=== PATIENT | female | born 1935 | race Caucasian/White ===

== ENCOUNTER 2018-04-19 16:27 | Emergency (ER) | payer MEDICARE ==
--- NOTE | 2018-04-19 17:35 | RAD ---
Indication: Fall, head injury. CT of the head performed without IV contrast. Ventricular structures are midline. No midline shift is noted. There is central and cortical atrophy. There is no evidence of intracranial mass or hemorrhage. No other high or low density lesions are identified. Mastoid air cells and paranasal sinuses are otherwise unremarkable. IMPRESSION: Atrophy. No intracranial mass or hemorrhage is noted.
--- NOTE | 2018-04-19 17:42 | RAD ---
Indication: Neck injury CT of the cervical spine was obtained in the axial plane. Sagittal and coronal reconstructed images were obtained. Skull base demonstrates no fracture. C1 ring is intact. The vertebral bodies appear normal in height. Disc space narrowing at C3-C4 with spondylytic ridge flattens the thecal sac. Bilateral uncovertebral hypertrophy is noted. C5-C6 spondylitic ridge with bilateral uncovertebral joint hypertrophy is noted. No central foraminal stenosis is noted. Old fracture of the C7 spinous process is noted. IMPRESSION: No recent fracture is noted. There is degenerative disc disease at C3-C4, C5-C6 and C6-C7.
[2018-04-19 19:15] VITALS: BP 143/111
--- NOTE | 2018-04-19 19:15 | ED ---
Jhony Morgan Tiffany, scribed for Bassam Adhikari MD on 04/19/18 at 1705 . Head Injury - HPI Summary HPI Summary: 82 year old F presenting to [facility] complains of hitting the back of her head s/p unwitnessed mechanical fall in bathroom at 16:00 today. Symptoms aggravated by nothing. Symptoms alleviated by nothing. Patient denies neck pain. LEVEL 5 CAVEAT: HPI is limited due to hx dementia. - History Of Current Complaint Stated Complaint: FALL Time Seen by Provider: 04/19/18 16:58 Hx Obtained From: Family/Hydrology Teacher - daughter Hx From Patient Unobtainable Due To: Dementia Mechanism Of Injury: Other - unwitnessed mechanical fall Onset/Duration: Started Hours Ago - 16:00 today Aggravating Factor(s): Other: - nothing Alleviating Factor(s): Other: - nothing Associated Signs And Symptoms: Negative - neck pain - Allergies/Home Medications Allergies/Adverse Reactions: Allergies Allergy/AdvReac Type Severity Reaction Status Date / Time No Known Allergies Allergy Verified 10/30/16 08:01 PMH/Surg Hx/FS Hx/Imm Hx Previously Healthy: No Endocrine/Hematology History: Reports: Hx Diabetes Cardiovascular History: Reports: Hx Hypercholesterolemia, Hx Hypertension Denies: Other Cardiovascular Problems/Disorders GI History: Reports: Hx Gastroesophageal Reflux Disease, Hx Hiatal Hernia Sensory History: Reports: Hx Contacts or Glasses Opthamlomology History: Reports: Hx Contacts or Glasses Neurological History: Reports: Hx Dementia - Cancer History Cancer Type, Location and Year: skin cancer - Surgical History Surgery Procedure, Year, and Place: appy, skin cancer removal to forehead Hx Anesthesia Reactions: No Infectious Disease History: Denies: Traveled Outside the [place] in Last 30 Days - Family History Known Family History: Positive: Diabetes - Social History Alcohol Use: None Hx Substance Use: No Substance Use Type: Reports: None Hx Tobacco Use: No Smoking Status (MU): Never Smoked Tobacco Review of Systems Negative: Fever Musculoskeletal: Negative - neck pain Positive: Other - patient hit the back of her head s/p unwitnessed mechanical fall All Other Systems Reviewed And Are Negative: Yes Physical Exam - Summary Physical Exam Summary: VITAL SIGNS: Reviewed. GENERAL: Patient is a well-developed and nourished (MALE OR FEMALE) who is lying comfortable in the stretcher. Patient is not in any acute respiratory distress. HEAD AND FACE: No signs of trauma. No ecchymosis, hematomas or skull depressions. No sinus tenderness. EYES: PERRLA, EOMI x 2, No injected conjunctiva, no nystagmus. EARS: Hearing grossly intact. Ear canals and tympanic membranes are within normal limits. MOUTH: Oropharynx within normal limits. NECK: Supple, trachea is midline, no adenopathy, no JVD, no carotid bruit, no c- spine tenderness, neck with full ROM. CHEST: Symmetric, no tenderness at palpation LUNGS: Clear to auscultation bilaterally. No wheezing or crackles. CVS: Regular rate and rhythm, S1 and S2 present, no murmurs or gallops appreciated. ABDOMEN: Soft, non-tender. No signs of distention. No rebound no guarding, and no masses palpated. Bowel sounds are normal. EXTREMITIES: FROM in all major joints, no edema, no cyanosis or clubbing. NEURO: Alert and oriented x 3 second to patient's chronic dementia. No acute neurological deficits. Speech is normal and follows commands. SKIN: Dry and warm Triage Information Reviewed: Yes Vital Signs On Initial Exam: Initial Vitals Temp Pulse Resp BP Pulse Ox 97 F 53 18 137/61 97 04/19/18 17:06 04/19/18 17:06 04/19/18 17:06 04/19/18 17:06 04/19/18 17:06 Vital Signs Reviewed: Yes Diagnostics - Vital Signs Vital Signs Temp Pulse Resp BP Pulse Ox 04/19/18 17:06 97 F 53 18 137/61 97 - Laboratory Lab Statement: Any lab studies that have been ordered have been reviewed, and results considered in the medical decision making process. - CT Brain CT Interpretation Completed By: Radiologist - Atrophy. No intracranial mass or hemorrhage is noted. ED physician has reviewed this report. C-Spine CT Interpretation Completed By: Radiologist - No recent fracture is noted. There is degenerative disc disease at C3-C4, C5-C6 and C6-C7. ED physician has reviewed this report. Head Injury Course/Dx Assessment/Plan: This patient is an 82-year-old female who presents to the emergency department after she had a mechanical fall. The patient has some dementia and the patients daughter brought the patient to the ER to check the head since the patient hit her head against the floor. She is ambulatory and she has no complaints. Head CT impression: Atrophy. No intracranial mass or hemorrhage noted. C-spine CT impression: No fracture dislocation. Since the patient is within normal limits, the patient is at baseline, and she is ambulatory the patient will be discharged home with follow-up with PCP. I discussed all the findings and test results with the patients daughter and the patient and the need to follow with PCP. They understand and agree. - Diagnoses Differential Diagnosis/HQI/PQRI: Cerebral Contusion, Concussion Without LOC, Contusion, Hematoma Provider Diagnoses: Accident due to mechanical fall without injury, Head contusion Discharge - Sign-Out/Discharge Documenting (check all that apply): Discharge/Admit/Transfer - Discharge Plan Condition: Stable Disposition: HOME Patient Education Materials: Fall Prevention for Older Adults (ED), Contusion in Adults (ED) Referrals: Sergio Forbes MD [Primary Care Provider] - 3 Days Additional Instructions: FOLLOW UP WITH YOUR PRIMARY CARE PROVIDER IN 3 DAYS. RETURN TO THE EMERGENCY DEPARTMENT FOR ANY WORSENING OR NEW SYMPTOMS. The documentation as recorded by the Jhony feliciano Tiffany accurately reflects the service I personally performed and the decisions made by me, Bassam Adhikari MD.
== END 2018-04-19 18:40 | disposition home or self-care (01) ==
LOC: ED 16:27
DX: S00.93XA Contusion of unspecified part of head, initial encounter (principal); W19.XXXA Unspecified fall, initial encounter; Y92.9 Unspecified place or not applicable; F03.90 Unspecified dementia, unspecified severity, without behavioral disturbance, psychotic disturbance, mood disturbance, and anxiety; G31.9 Degenerative disease of nervous system, unspecified; M50.323 Other cervical disc degeneration at C6-C7 level
CPT/HCPCS: 70450; 72125; 99282

== ENCOUNTER 2018-06-03 16:56 | Emergency (ER) | payer MEDICARE ==
--- NOTE | 2018-06-03 17:19 | ED ---
Altered Mental Status - HPI Summary HPI Summary: This is scribe Monicaquan Booker documenting for attending Baldemar Sandhu MD. 82 year old F presenting to [facility] accompanied by daughter complains of altered mental status since 1529 today. Symptoms aggravated by nothing. Symptoms alleviated by nothing. Patient reports chills. She denies weakness, dizziness, and abdominal pain. Daughter states that patient turned pale, had slurred speech and near syncopal episode at 1530 today. Daughter reports that patient has been dehydrated recently. Daughter gave patient peanut butter and OJ [employer] after which patient felt better. Finger stick was 78 in room. - History Of Current Complaint Chief Complaint: EDNeurologicalDeficit Stated Complaint: BLOOD SUGAR PROBLEM Time Seen by Provider: 06/03/18 17:07 Hx Obtained From: Patient, Family/Reconciliation Specialist - daughter Onset/Duration: Still Present Timing: Constant Aggravating Factor(s): Nothing Alleviating Factor(s): Nothing - Allergies/Home Medications Allergies/Adverse Reactions: Allergies Allergy/AdvReac Type Severity Reaction Status Date / Time No Known Allergies Allergy Verified 10/30/16 08:01 PMH/Surg Hx/FS Hx/Imm Hx Previously Healthy: No Endocrine/Hematology History: Reports: Hx Diabetes Cardiovascular History: Reports: Hx Hypercholesterolemia, Hx Hypertension Denies: Other Cardiovascular Problems/Disorders GI History: Reports: Hx Gastroesophageal Reflux Disease, Hx Hiatal Hernia Sensory History: Reports: Hx Contacts or Glasses Opthamlomology History: Reports: Hx Contacts or Glasses Neurological History: Reports: Hx Dementia - Cancer History Cancer Type, Location and Year: skin cancer - Surgical History Surgery Procedure, Year, and Place: appy, skin cancer removal to forehead Hx Anesthesia Reactions: No - Family History Known Family History: Positive: Diabetes - Social History Alcohol Use: None Hx Substance Use: No Substance Use Type: Reports: None Hx Tobacco Use: No Smoking Status (MU): Never Smoked Tobacco Review of Systems Positive: Chills Negative: Abdominal Pain Neurological: Negative - weakness, dizziness Positive: Other - altered mental status All Other Systems Reviewed And Are Negative: Yes Physical Exam - Summary Physical Exam Summary: Appearance: The patient is well-nourished in no acute distress and in no acute pain. Skin: The skin is warm and dry and skin color reflects adequate perfusion. HEENT: The head is normocephalic and atraumatic. The pupils are equal and reactive. The conjunctivae are clear and without drainage. Nares are patent and without drainage. Mouth reveals moist mucous membranes and the throat is without erythema and exudate. The external ears are intact. The ear canals are patent and without drainage. The tympanic membranes are intact. Neck: The neck is supple with full range of motion and non-tender. There are no carotid bruits. There is no neck vein distension. Respiratory: Chest is non-tender. Lungs are clear to auscultation and breath sounds are symmetrical and equal. Cardiovascular: Heart is regular rate and rhythm. There is no murmur or rub auscultated. There is no peripheral edema and pulses are symmetrical and equal. Abdomen: The abdomen is soft and non-tender. There are normal bowel sounds heard in all four quadrants and there is no organomegaly palpated. Musculoskeletal: There is no back tenderness noted. Extremities are non-tender with full range of motion. There is good capillary refill. There is no peripheral edema or calf tenderness elicited. Neurological: Patient is alert and oriented to person, place and time. The patient has symmetrical motor strength in all four extremities. Cranial nerves are grossly intact. Deep tendon reflexes are symmetrical and equal in all four extremities. Psychiatric: The patient has an appropriate affect and does not exhibit any anxiety or depression. Triage Information Reviewed: Yes Vital Signs Reviewed: Yes Diagnostics - Laboratory Result Diagrams: 06/03/18 17:12 06/03/18 17:12 Lab Statement: Any lab studies that have been ordered have been reviewed, and results considered in the medical decision making process. Re-Evaluation - Re-Evaluation First Eval Re-Evaluation Time: 18:26 Comment: Patient is no longer hypoglycemic. She and her daughter are agreeable to discharge. Altered Mental Statu Course/Dx - Course Course Of Treatment: Ms. Rob skipped menstrual today and became semi- responsive in the presence of her daughter. Her daughter gave her some orange juice and peanut butter and brought her here because she did not improve and 15 minutes. However by the time they got here she was starting to react a little bit better and when I saw her she was able to answer questions appropriately. She was given food to eat here while basic labs were obtained and she was observed. After eating she was much improved and back to her normal state. - Diagnoses Provider Diagnoses: Hypoglycemia Discharge - Sign-Out/Discharge Documenting (check all that apply): Patient Departure - Discharge - Discharge Plan Condition: Stable Disposition: HOME Patient Education Materials: Hypoglycemia in a Person with Diabetes (ED), What to Do if Your Blood Sugar is Low (ED) Referrals: Sergio Forbes MD [Medical Doctor] - 3 Days Additional Instructions: Follow up with your primary care provider in 3 days. Return to the Emergency Department for new or worsening symptoms. - Billing Disposition and Condition Condition: STABLE Disposition: Home
[2018-06-03 17:23] LABS: ABS Basophils 0.1 10^3/ul (0-0.2); ABS Eosinophils 0.1 10^3/ul (0-0.6); ABS Lymphocytes 1.8 10^3/ul (1.0-4.8); ABS Monocytes 0.6 10^3/ul (0-0.8); ABS Neutrophils 8.1 10^3/ul (1.5-7.7); ABS Nucleated RBC 0 10^3/ul; Eosinophil % 0.5 % (0-6); Hematocrit 39 % (35-47); Lymphocyte % 16.6 % (25-47); Mean Corpuscular HGB Conc 34 g/dl (31-36); Mean Corpuscular Hemoglobin 33 pg (27-31); Mean Corpuscular Volume 100 fL (80-97); Mean Platelet Volume 8.5 um3 (7.4-10.4); Nucleated Red Blood Cells % 0.1; Platelet Count 250 10^3/ul (150-450); Red Cell Distribution Width 14 % (10.5-15); White Blood Count 10.6 10^3/ul (3.5-10.8)
[2018-06-03 17:41] LABS: EGFR Non-African American 40.5 (>60)
[2018-06-03 18:25] VITALS: BP 149/107
== END 2018-06-03 18:44 | disposition home or self-care (01) ==
LOC: ED 16:56
DX: E16.2 Hypoglycemia, unspecified (principal); R41.82 Altered mental status, unspecified
CPT/HCPCS: 36415; 80053; 83605; 84484; 85025; 99282

== ENCOUNTER 2019-05-23 16:08 | Emergency (ER) | payer MEDICARE ==
--- NOTE | 2019-05-23 17:06 | ED ---
Throat Pain/Nasal Congestion - HPI Summary HPI Summary: An 83 y/o female brought in by [facility] [employer] [facility] accompanied by her three daughters presents to [facility] with a chief complaint of her choking on a banana. The patient has a Hx of dementia, alzheimer's and DM. In the ED room she is able to drink and swallow orange juice without any problems. - History of Current Complaint Chief Complaint: EDNeckComplaint Hx Obtained From: Family/Supervisor Record Press, EMS Onset/Duration: Sudden Onset, Lasting Minutes, Still Present Severity: Mild Associated Signs And Symptoms: Positive: Negative Cough: None - Allergies/Home Medications Allergies/Adverse Reactions: Allergies Allergy/AdvReac Type Severity Reaction Status Date / Time No Known Allergies Allergy Verified 10/30/16 08:01 PMH/Surg Hx/FS Hx/Imm Hx Endocrine/Hematology History: Reports: Hx Diabetes Cardiovascular History: Reports: Hx Hypercholesterolemia, Hx Hypertension Denies: Other Cardiovascular Problems/Disorders GI History: Reports: Hx Gastroesophageal Reflux Disease, Hx Hiatal Hernia Sensory History: Reports: Hx Contacts or Glasses Opthamlomology History: Reports: Hx Contacts or Glasses Neurological History: Reports: Hx Dementia - Cancer History Cancer Type, Location and Year: skin cancer - Surgical History Surgery Procedure, Year, and Place: appy, skin cancer removal to forehead Hx Anesthesia Reactions: No Infectious Disease History: No Infectious Disease History: Denies: Traveled Outside the [place] in Last 30 Days - Family History Known Family History: Positive: Diabetes - Social History Alcohol Use: None Hx Substance Use: No Substance Use Type: Reports: None Hx Tobacco Use: No Smoking Status (MU): Never Smoked Tobacco Review of Systems Negative: Fever Positive: Other - positive: choked on a banana All Other Systems Reviewed And Are Negative: Yes Physical Exam - Summary Physical Exam Summary: VITAL SIGNS: Reviewed. GENERAL: Patient is a well-developed and nourished FEMALE who is lying comfortable in the stretcher. Patient is not in any acute respiratory distress. HEAD AND FACE: No signs of trauma. No ecchymosis, hematomas or skull depressions. No sinus tenderness. EYES: PERRLA, EOMI x 2, No injected conjunctiva, no nystagmus. EARS: Hearing grossly intact. Ear canals and tympanic membranes are within normal limits. MOUTH: Oropharynx within normal limits. NECK: Supple, trachea is midline, no adenopathy, no JVD, no carotid bruit, no c- spine tenderness, neck with full ROM. CHEST: Symmetric, no tenderness at palpation. LUNGS: Clear to auscultation bilaterally. No wheezing or crackles. CVS: Regular rate and rhythm, S1 and S2 present, no murmurs or gallops appreciated. ABDOMEN: Soft, non-tender. No signs of distention. No rebound, no guarding, and no masses palpated. Bowel sounds are normal. EXTREMITIES: FROM in all major joints, no edema, no cyanosis or clubbing. NEURO: Alert and oriented x 3. No acute neurological deficits. Speech is normal and follows commands. SKIN: Dry and warm. Triage Information Reviewed: Yes Vital Signs On Initial Exam: Initial Vitals Temp Pulse Resp BP Pulse Ox 98.5 F 72 16 170/114 94 05/23/19 16:11 05/23/19 16:11 05/23/19 16:11 05/23/19 16:11 05/23/19 16:11 Vital Signs Reviewed: Yes Diagnostics - Vital Signs Vital Signs Temp Pulse Resp BP Pulse Ox 05/23/19 16:11 98.5 F 72 16 170/114 94 - Laboratory Lab Statement: Any lab studies that have been ordered have been reviewed, and results considered in the medical decision making process. EENT Course/Dx - Course Assessment/Plan: An 83 y/o female brought in by [facility] ambulance accompanied by her three daughters presents to [facility] with a chief complaint of her choking on a banana. The patient has a Hx of dementia, alzheimer's and DM. In the ED room she is able to drink and swallow orange juice without any problems. Patient reports no symptoms at this time. The patient was given orange juice and the patient is able to drink without any choking episodes. Therefore the patient will be discharged home with follow-up with PCP. Patient's daughter and son also agree. - Diagnoses Provider Diagnoses: Choking Discharge - Sign-Out/Discharge Documenting (check all that apply): Patient Departure - DC Patient Received Moderate/Deep Sedation with Procedure: No - Discharge Plan Condition: Stable Disposition: HOME Referrals: Nereyda Brandon MD [Primary Care Provider] - (2-3 days) Additional Instructions: FOLLOW UP WITH YOUR PRIMARY CARE PROVIDER WITHIN 2-3 DAYS. RETURN TO THE ED FOR ANY WORSENING OR NEW SYMPTOMS. - Billing Disposition and Condition Condition: STABLE Disposition: Home - Attestation Statements Document Initiated by Scribe: Yes Documenting Scribe: David Mao Provider For Whom Scribe is Documenting (Include Credential): Bassam Adhikari MD Scribe Attestation: IDavid, scribed for Bassam Adhikari MD on 05/24/19 at 1051. Scribe Documentation Reviewed: Yes Provider Attestation: The documentation as recorded by the David feliciano accurately reflects the service I personally performed and the decisions made by Bassam rao MD Status of Scribe Document: Viewed
[2019-05-23 18:06] VITALS: BP 127/67
== END 2019-05-23 18:02 | disposition home or self-care (01) ==
LOC: ED 16:08
DX: T17.928A Food in respiratory tract, part unspecified causing other injury, initial encounter (principal); X58.XXXA Exposure to other specified factors, initial encounter; Y92.9 Unspecified place or not applicable; E11.9 Type 2 diabetes mellitus without complications; I10 Essential (primary) hypertension; G30.9 Alzheimer's disease, unspecified; F02.80 Dementia in other diseases classified elsewhere, unspecified severity, without behavioral disturbance, psychotic disturbance, mood disturbance, and anxiety
CPT/HCPCS: 99282

== ENCOUNTER 2019-09-24 21:44 | Emergency (ER) | payer MEDICARE ==
--- NOTE | 2019-09-24 22:43 | ED ---
Adult Trauma - HPI Summary HPI Summary: 83-year-old female presents with fall today. fall was unwitnessed. Her scissors were on the ground and she ended up sliding to get them. She denies any head injury. Denies any pain at this time. Is able to ambulate on her own. Her family states she is at her baseline. He does have a history of Alzheimer's and dementia and nonverbal at baseline. Is able to nod yes and no. Has been acting normal per family. Is prescribed sleep medication and took such so is at normal drowsy. Patient wants to go home. Level V Due to dementia. - History of Current Complaint Chief Complaint: EDFall Stated Complaint: AMS AFTER FALL PER EMS Time Seen by Provider: 09/24/19 22:19 Pain Intensity: 0 - Additional Pertinent History Primary Care Physician: JUAN - Allergy/Home Medications Allergies/Adverse Reactions: Allergies Allergy/AdvReac Type Severity Reaction Status Date / Time No Known Allergies Allergy Verified 10/30/16 08:01 Home Medications: Home Medications Melatonin [Melatonin Maximum Strengt] 10 mg PO BEDTIME 09/24/19 [History Confirmed 09/24/19] QUEtiapine TAB* [Seroquel 25 MG TAB*] 25 mg PO BEDTIME 09/24/19 [History Confirmed 09/24/19] PMH/Surg Hx/FS Hx/Imm Hx Endocrine/Hematology History: Reports: Hx Diabetes Cardiovascular History: Reports: Hx Hypercholesterolemia, Hx Hypertension Denies: Other Cardiovascular Problems/Disorders GI History: Reports: Hx Gastroesophageal Reflux Disease, Hx Hiatal Hernia Sensory History: Reports: Hx Contacts or Glasses Opthamlomology History: Reports: Hx Contacts or Glasses Neurological History: Reports: Hx Dementia - Cancer History Cancer Type, Location and Year: skin cancer - Surgical History Surgery Procedure, Year, and Place: appy, skin cancer removal to forehead Hx Anesthesia Reactions: No Infectious Disease History: No Infectious Disease History: Denies: Traveled Outside the [place] in Last 30 Days - Family History Known Family History: Positive: Diabetes - Social History Alcohol Use: None Hx Substance Use: No Substance Use Type: Reports: None Hx Tobacco Use: No Smoking Status (MU): Never Smoked Tobacco Review of Systems Negative: Fever Negative: Chest Pain Negative: Shortness Of Breath Negative: Headache All Other Systems Reviewed And Are Negative: Yes Physical Exam Triage Information Reviewed: Yes Vital Signs On Initial Exam: Initial Vitals Temp Pulse Resp BP Pulse Ox 97.9 F 62 20 164/107 97 09/24/19 21:58 09/24/19 21:58 09/24/19 21:58 09/24/19 21:58 09/24/19 21:58 Vital Signs Reviewed: Yes Appearance: Positive: Well-Appearing Skin: Positive: Warm, Dry Head/Face: Positive: Normal Head/Face Inspection Eyes: Positive: Normal, EOMI, SHELDON, Conjunctiva Clear ENT: Positive: Pharynx normal, TMs normal Respiratory/Lung Sounds: Positive: Clear to Auscultation, Breath Sounds Present Cardiovascular: Positive: Normal, RRR Neurological: Positive: Sensory/Motor Intact, CN Intact II-III. Negative: Alert , Oriented to Person Place, Time - nonverbal Psychiatric: Positive: Normal Procedures - Sedation Patient Received Moderate/Deep Sedation with Procedure: No Diagnostics - Vital Signs Vital Signs Temp Pulse Resp BP Pulse Ox 09/24/19 21:58 97.9 F 62 20 164/107 97 - Laboratory Lab Statement: Any lab studies that have been ordered have been reviewed, and results considered in the medical decision making process. Adult Trauma Course/Dx - Course Course Of Treatment: 83-year-old female presents with fall today. fall was unwitnessed. Her scissors were on the ground and she ended up sliding to get them. She denies any head injury. Denies any pain at this time. Is able to ambulate on her own. Her family states she is at her baseline. He does have a history of Alzheimer's and dementia and nonverbal at baseline. Is able to nod yes and no. Has been acting normal per family. Is prescribed sleep medication and took such so is at normal drowsy. Patient wants to go home. Level V Due to dementia. On exam patient is nonverbal. Able to follow commands though. Otherwise normal neuro exam. No neuro deficit noted. Patient was ambulate around room. Discuss getting CT brain and family declined. Will have follow- up with primary. Patient family understands and agrees the plan. - Diagnoses Differential Diagnosis/HQI/PQRI: Positive: Fracture, Sprain, Strain Provider Diagnoses: Fall Discharge ED - Sign-Out/Discharge Documenting (check all that apply): Patient Departure - Discharge Plan Condition: Good Disposition: HOME Patient Education Materials: Fall Prevention for Older Adults (ED) Referrals: Nereyda Brandon MD [Primary Care Provider] - Additional Instructions: follow up with primary within 5 days Return to ED if develop any new or worsening symptoms - Billing Disposition and Condition Condition: GOOD Disposition: Home
[2019-09-24 22:59] VITALS: BP 140/79
== END 2019-09-24 22:50 | disposition home or self-care (01) ==
LOC: ED 21:44
DX: Z04.3 Encounter for examination and observation following other accident (principal); W01.0XXA Fall on same level from slipping, tripping and stumbling without subsequent striking against object, initial encounter; Y92.009 Unspecified place in unspecified non-institutional (private) residence as the place of occurrence of the external cause; G30.9 Alzheimer's disease, unspecified; F02.80 Dementia in other diseases classified elsewhere, unspecified severity, without behavioral disturbance, psychotic disturbance, mood disturbance, and anxiety; E11.9 Type 2 diabetes mellitus without complications; E78.00 Pure hypercholesterolemia, unspecified; I10 Essential (primary) hypertension; K21.9 Gastro-esophageal reflux disease without esophagitis; Z85.828 Personal history of other malignant neoplasm of skin; Z79.899 Other long term (current) drug therapy
CPT/HCPCS: 99282